=== PATIENT | female | born 1950 | race Caucasian/White ===

== ENCOUNTER → 2017-02-03 | Outpatient (CLI) | payer MEDICARE ==
[~2017-02-03] MED LIST: ASPIR 8181 MG PO; CLONIDINE HCL0.1 MG PO; ELIQUIS5 MG PO; IRBESARTAN-HCT1 EAC1 PO; JANUVIA100 MG PO; METFORMIN HCL500 MG PO; METOPROLOL SUCC50 MG PO; NAPROXEN500 MG PO; PRAVASTATIN SOD10 MG PO; PRILOSEC OTC20 MG PO; TYLENOL 325MG325 MG PO; VITAMIN D350000 UNIT PO
== END ==
LOC: MAMO 01-28 13:20
DX: Z12.31 Encounter for screening mammogram for malignant neoplasm of breast (principal)
CPT/HCPCS: G0202

== ENCOUNTER → 2017-02-11 | Outpatient (CLI) | payer MEDICARE | LOC: MAMO 14:13 | DX: Z12.31 Encounter for screening mammogram for malignant neoplasm of breast (principal) | CPT/HCPCS: G0206 ==

== ENCOUNTER → 2021-05-09 | Outpatient (CLI) | payer MEDICARE | LOC: MAMO 08:12 → EXRD 08:30 → MAMO 09:30 | DX: Z12.31 Encounter for screening mammogram for malignant neoplasm of breast (principal) | CPT/HCPCS: 77063; 77067 ==

== ENCOUNTER → 2021-05-24 | Outpatient (CLI) | payer MEDICARE | LOC: EXRD 09:26 | DX: M81.0 Age-related osteoporosis without current pathological fracture (principal); M85.89 Other specified disorders of bone density and structure, multiple sites | CPT/HCPCS: 77080 ==